=== PATIENT | female | born 1965 | race Caucasian/White ===

== ENCOUNTER → 2017-11-22 | Outpatient (CLI) | payer BC ==
--- NOTE | 2017-11-23 10:29 | MM ---
Reason for exam: screening (asymptomatic). Last mammogram was performed 1 year and 2 months ago. History: Patient is postmenopausal and has history of other cancer at age 46. Took hormonal contraceptives for 20 years. MG 3D Screening Mammo W/Cad Bilateral CC and MLO view(s) were taken. Prior study comparison: September 08, 2016, bilateral MG screening mammo w CAD. July 23, 2015, bilateral MG screening mammo w CAD. May 27, 2014, bilateral MG screening mammo w CAD. The breast tissue is heterogeneously dense. This may lower the sensitivity of mammography. Finding: There is a new architectural distortion in the central position of the left breast, CC slice (39/61) not as well seen on MLO view. ASSESSMENT: Incomplete: need additional imaging evaluation, BI-RAD 0 RECOMMENDATION: Special view mammogram of the left breast. If lesion persists on supplemental views, image directed ultrasound is recommended. [facility] will attempt to contact patient to return for supplemental views and ultrasound if indicated.
== END ==
LOC: RADMAMWWP 07:42
PROVIDERS: ATTEND Obstetrics & Gynecology
DX: Z12.31 Encounter for screening mammogram for malignant neoplasm of breast (principal); R92.8 Other abnormal and inconclusive findings on diagnostic imaging of breast
CPT/HCPCS: 77063; 77067

== ENCOUNTER → 2017-11-29 | Outpatient (CLI) | payer BC ==
--- NOTE | 2017-11-30 07:06 | MM ---
Reason for exam: additional evaluation requested from abnormal screening. Last mammogram was performed less than 1 month ago. History: Patient is postmenopausal and has history of other cancer at age 46. Took hormonal contraceptives for 20 years. Physical Findings: Nurse did not find any significant physical abnormalities on exam. MG 3D Work Up W/Cad LT Spot compression CC and spot compression MLO view(s) were taken of the left breast. Prior study comparison: November 22, 2017, bilateral MG 3d screening mammo w/cad. September 08, 2016, bilateral MG screening mammo w CAD. The breast tissue is heterogeneously dense. This may lower the sensitivity of mammography. There is no discrete abnormality including area of concern. These results were verbally communicated with the patient and result sheet given to the patient on 11/29/17. ASSESSMENT: Benign, BI-RAD 2 RECOMMENDATION: Return to routine screening mammogram schedule for both breasts.
== END ==
LOC: RADMAMWWP 14:54
PROVIDERS: ATTEND Obstetrics & Gynecology
DX: R92.8 Other abnormal and inconclusive findings on diagnostic imaging of breast (principal)
CPT/HCPCS: 77065; G0279

== ENCOUNTER 2018-03-24 11:22 | Day surgery (SDC) | payer BC ==
[2018-03-22 09:20] VITALS: BMI 36.0
[~2018-03-24 11:22] MED LIST: LACTATED RINGERS 1,000 ML IV SCH; LIDOCAINE 1% 20 ML VIAL (10MG/ML) FOR IV START INTRADERMA PRN
[2018-03-24 11:44] VITALS: RESP 16; TEMP 98.2
[2018-03-24] MEDS ORDERED: PROPOFOL 10 MG/ML 20 ML VIAL IV ONE (13:02)
[2018-03-24] MEDS ORDERED: GLYCOPYRROLATE 0.2 MG/ML 2 ML VIAL ONE (13:02)
[2018-03-24] MEDS ORDERED: LIDOCAINE 1% INJ 10MG/ML (20 ML MDV) ONE (13:02)
--- NOTE | 2018-03-24 13:08 | P.GSHP ---
History of Present Illness H&P Date: 03/24/18 Chief Complaint: GERD, screening colonoscopy This a 52-year-old female who presents today for EGD and screening colonoscopy. He has had issues with GERD. Past Medical History Past Medical History: Cancer, GERD/Reflux, Hearing Disorder / Deafness, Hyperlipidemia, Thyroid Disorder Additional Past Medical History / Comment(s): SKIN CANCER-BASAL CELL. BILAT HEARING AIDS History of Any Multi-Drug Resistant Organisms: None Reported Past Surgical History: Bladder Surgery, Cholecystectomy, Orthopedic Surgery Additional Past Surgical History / Comment(s): EXCISION -LESION FROM FACE, , RT KNEE,ANKLE,FOOT SX, IRRITATING METAL REMOVED-RIGHT KNEE, BILAT SHOULDER SX, BLADDER SLING, Past Anesthesia/Blood Transfusion Reactions: No Reported Reaction Smoking Status: Never smoker - Past Family History Mother Family Medical History: Cancer Medications and Allergies Home Medications Medication Instructions Recorded Confirmed Type Citalopram Hydrobromide [CeleXA] 20 mg PO DAILY 02/13/15 03/22/18 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 Thyroid 60 Mg 60 mg PO BID 03/22/18 History Progesterone, Micronized 100 mg PO HS 03/22/18 03/22/18 History [Progesterone] Simvastatin [Zocor] 20 mg PO HS 03/22/18 03/22/18 History Allergies Allergy/AdvReac Type Severity Reaction Status Date / Time No Known Allergies Allergy Verified 03/24/18 11:36 Surgical - Exam Vital Signs Temp Pulse Resp BP Pulse Ox 98.2 F 82 16 118/76 95 03/24/18 11:43 03/24/18 11:43 03/24/18 11:43 03/24/18 11:43 03/24/18 11:43 - General well developed, no distress - Eyes PERRL - ENT normal pinna - Neck no masses - Respiratory normal expansion - Cardiovascular Rhythm: regular - Abdomen Abdomen: soft, non tender Assessment and Plan Assessment: GERD we'll perform EGD. We'll also perform screening colonoscopy.
--- NOTE | 2018-03-24 13:25 | P.OP ---
Date of Procedure: 03/24/18 Preoperative Diagnosis: GERD Screening colonoscopy Postoperative Diagnosis: Antral gastritis No evidence of hiatal hernia Minimal esophagitis Normal colon Procedure(s) Performed: EGD Colonoscopy Anesthesia: MAC Surgeon: Derik Leblanc Pathology: other (Antrum, esophagus) Condition: stable Disposition: PACU Description of Procedure: Patient was placed on the endoscopy table in the lateral position. She received IV sedation. The gastroscope placed oropharynx and passed in the esophagus into the stomach. Scope was then placed through the pylorus. The first and second portion of duodenum appeared normal. Scope was then brought back the antrum and this was mildly inflamed. A biopsies performed. Scope was unretroflexed and remainder stomach appeared normal. There is no significant hiatal hernia. The GE junction was at 40 cm. The distal esophagus appeared minimally inflamed a biopsies performed. The proximal esophagus appeared normal. Scope was withdrawn for patient. Next, Digital rectal examination was performed which revealed no abnormalities.. Flexible colonoscope was then placed in the patient's anus and passed throughout the entire colon. The ileocecal valve was visualized. The cecum, ascending, transverse, descending and sigmoid colon were normal. The rectum was normal as well. There were no masses, polyps or diverticula noted in the entire colon.
[2018-03-24 13:48] VITALS: BP 131/77; PULSE 81
== END 2018-03-24 14:09 | disposition home or self-care (01) ==
LOC: ORWHC2ENDO 11:22
PROVIDERS: ATTEND Surgery
DX: Z12.11 Encounter for screening for malignant neoplasm of colon (principal); K29.50 Unspecified chronic gastritis without bleeding; K21.0 Gastro-esophageal reflux disease with esophagitis; E78.5 Hyperlipidemia, unspecified; E07.9 Disorder of thyroid, unspecified; H91.90 Unspecified hearing loss, unspecified ear; Z85.828 Personal history of other malignant neoplasm of skin; Z79.890 Hormone replacement therapy; Z79.899 Other long term (current) drug therapy
CPT/HCPCS: 88305; 43239; J2001; J2704; G0121

== ENCOUNTER → 2018-07-31 | Outpatient (CLI) | payer BC | END | disposition home or self-care (01) | LOC: LABPAT 13:56 | PROVIDERS: ATTEND Surgery | DX: Z53.9 Procedure and treatment not carried out, unspecified reason (principal) ==

== ENCOUNTER 2018-08-03 09:06 | Inpatient (IN) | payer BC ==
[2018-07-31 13:11] VITALS: BMI 36.0
[~2018-08-03 09:06] MED LIST changes: +DEXAMETHASONE SOD PHOSPHATE 10 MG/ML 1 ML VIAL IV ONE; +HEPARIN SODIUM,PORCINE 5,000 UNIT/ML 1 ML VIAL SQ ONE; -LACTATED RINGERS 1,000 ML IV SCH; +MIDAZOLAM 2 MG/2 ML VIAL IV PRN; +ONDANSETRON 4 MG/2 ML VIAL IVP ONE; +ceFAZolin IN SWFI 2 GM/20 ML SYRINGE IVP ONE; +fentaNYL (PF) 50 MCG/ML 2 ML AMP IV PRN
[2018-08-03] MEDS: LACTATED RINGERS 1,000 ML IV SCH (09:38)
--- NOTE | 2018-08-03 10:05 | P.GSHP ---
History of Present Illness H&P Date: 08/03/18 Chief Complaint: GERD This is a 52-year-old female referred from Dr. Ibarra.The patient has had long- standing problems with reflux esophagitis. The patient underwent recent EGD is found have evidence of esophagitis. Patient has been well informed on the procedure of laparoscopic Emerald fundoplication. The patient is aware the risk of the conversion to the open procedure, risk of injury to the stomach, liver and spleen. The patient is also a risk of recurrent GERD and dysphagia symptoms. The patient understands there is a postoperative diet of full liquids for 2 weeks after surgery. Past Medical History Past Medical History: Cancer, GERD/Reflux, Hearing Disorder / Deafness, Hyperlipidemia, Pneumonia, Skin Disorder, Thyroid Disorder Additional Past Medical History / Comment(s): SKIN CANCER-BASAL CELL; EZCEMA. LMP 01/2017, ON HORMONE PELLET THERAPY. BILAT HEARING AIDS History of Any Multi-Drug Resistant Organisms: None Reported Past Surgical History: Bladder Surgery, Cholecystectomy, Orthopedic Surgery Additional Past Surgical History / Comment(s): EXCISION -LESION FROM FACE, ORIF RT KNEE PATELLA, ORIF ANKLE, HEEL FOOT SX. IRRITATING METAL REMOVED-RIGHT KNEE, BILAT SHOULDER SX, BLADDER SLING. 03/24/18 COLONOSCOPY, EGD. 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 Thyroid 60 Mg 60 mg PO BID 03/22/18 07/31/18 History Progesterone, Micronized 200 mg PO HS 03/22/18 07/31/18 History [Progesterone] Simvastatin [Zocor] 40 mg PO HS 03/22/18 07/31/18 History Cholecalciferol [Vitamin D3] 2,000 unit PO DAILY 07/31/18 07/31/18 History Multivitamins, Thera [Multivitamin 1 tab PO DAILY 07/31/18 07/31/18 History (formulary)] Omeprazole Magnesium [PriLOSEC OTC] 20 mg PO DAILY PRN 07/31/18 07/31/18 History Allergies Allergy/AdvReac Type Severity Reaction Status Date / Time No Known Allergies Allergy Verified 08/03/18 09:22 Surgical - Exam Vital Signs Temp Pulse Resp BP Pulse Ox 98.3 F 74 16 123/78 95 08/03/18 09:23 08/03/18 09:23 08/03/18 09:23 08/03/18 09:23 08/03/18 09:23 - General well developed, no distress - Eyes PERRL - ENT normal pinna - Neck no masses - Respiratory normal expansion - Cardiovascular Rhythm: regular - Abdomen Abdomen: soft, non tender Assessment and Plan Assessment: GERD. We'll perform laparoscopic Emerald fundoplication.
[2018-08-03] MEDS ORDERED: ROCURONIUM BROMIDE 10 MG/ML 10 ML VIAL IV ONE (10:29)
[2018-08-03] MEDS ORDERED: GLYCOPYRROLATE 0.2 MG/ML 2 ML VIAL ONE (10:29)
[2018-08-03] MEDS ORDERED: fentaNYL (PF) 50 MCG/ML 2 ML AMP ONE (10:29)
[2018-08-03] MEDS ORDERED: ePHEDrine SULFATE/0.9% NACL/PF 50 MG/5 ML SYRINGE IV ONE (10:29)
[2018-08-03] MEDS ORDERED: NEOSTIGMINE 1 MG/ML 10 ML VIAL ONE (10:29)
[2018-08-03] MEDS ORDERED: LIDOCAINE 1% INJ 10MG/ML (20 ML MDV) ONE (10:29)
[2018-08-03] MEDS ORDERED: HYDROmorphone (PF) 1 MG/ML ONE (10:29)
[2018-08-03] MEDS ORDERED: PROPOFOL 10 MG/ML 20 ML VIAL IV ONE (10:29)
[2018-08-03] MEDS ORDERED: KETOROLAC 30 MG/ML 1 ML VIAL ONE (10:29)
[2018-08-03] MEDS ORDERED: MIDAZOLAM 2 MG/2 ML VIAL ONE (10:29)
[2018-08-03] MEDS ORDERED: BUPIVACAIN-EPI 0.5%-1:200,000 30 ML VIAL SQ ONE (10:56)
[2018-08-03] MEDS ORDERED: ONDANSETRON 4 MG/2 ML VIAL IVP PRN (11:22)
[2018-08-03] MEDS ORDERED: HYDROmorphone 1 MG/ML 1 ML SYRINGE IVP PRN (11:22)
--- NOTE | 2018-08-03 11:22 | P.OP ---
Date of Procedure: 08/03/18 Preoperative Diagnosis: GERD Postoperative Diagnosis: GERD Procedure(s) Performed: Laparoscopic Emerald fundal plication Anesthesia: CATHRYN Surgeon: Derik Leblanc Estimated Blood Loss (ml): 5 Pathology: none sent Condition: stable Disposition: PACU Description of Procedure: The patient was placed on the operating table in the supine position. The patient received general anesthesia. And was placed in dorsal lithotomy position. The patient was prepped and draped in the usual sterile fashion. The skin incision sites were anesthetized with 1% local Xylocaine. The skin was incised in the left periumbilical area and then using a blade less 5 mm trocar under direct visualization panel cavity was entered. After adequate insufflation the laparoscope was then placed into the peritoneal cavity. Next a 5 mm trochars placed in the right epigastric position. Another 5 millimeter trocar the right lateral position. Another 5 millimeter trocar in the left lateral position a 5 mm trocar is placed in the left epigastric position. And then the initial 5 mm trocar was exchanged for a 10 mm trocar. The left lateral lobe liver was retracted. The hernia was seen. The crural defect was then dissected using the Harmonic scissors device. A 360 crural dissection was performed the esophagus stomach was reduced back into the peritoneal Cavity. The crural defect was then closed using 2-0 Ethibond suture. Next the fundus of the stomach was mobilized using the [place] scissors device. and then a 58-Pashto bougie dilator was placed oropharynx passed into the esophagus and stomach the fundal plication wrap was then performed by grasping the fundus posteriorly and bringing it around the esophagus and stomach fundoplication was then performed using 2-0 Ethibond suture. Care was taken that the fundal location rested over top of the intra-abdominal esophagus. There was no injury seen to the stomach or esophagus. The dilator was then withdrawn. The abdomen was irrigated there is no bleeding seen. The trochars were then withdrawn and then skin incision sites were closed using 3-0 Monocryl suture Steri-Strips are applied. Patient thought procedure well and sent to recovery room in stable condition.
[2018-08-03] MEDS ORDERED: HYDROmorphone 1 MG/ML 1 ML SYRINGE IVP ONE ×2 (11:30→11:35)
[2018-08-03 12:12] VITALS: RESP 16
[2018-08-03] MEDS ORDERED: LACTATED RINGERS 1,000 ML IV ONE (12:20)
[2018-08-03] MEDS ORDERED: ONDANSETRON 4 MG/2 ML VIAL IVP ONE (12:22)
[2018-08-03] MEDS: METOCLOPRAMIDE 5 MG/ML 2 ML VIAL IVP SCH ×3 (13:25→23:51)
[2018-08-03] MEDS ORDERED: PANTOPRAZOLE 40 MG TABLET PO PRN (14:05)
--- NOTE | 2018-08-03 15:46 | FL ---
Single contrast esophagram EXAMINATION TYPE: FL esophagus cervic/pharynx DATE OF EXAM: 08/03/2018 3:33 PM COMPARISON: NONE CLINICAL HISTORY: Status post Jean Claude fundoplication The patient ingested contrast without difficulty or delay. Noted are changes of Jean Claude fundoplicatio n. There is no evidence for leak or obstruction. Small amount of residual contrast within the distal esophagus. IMPRESSION: Post-surgical change of Jean Claude fundoplication without evidence for leak or obstruction.
--- NOTE | 2018-08-03 16:21 | P.CONS ---
History of Present Illness - Reason for Consult Preoperative consultation management - History of Present Illness 52-year-old pleasant female with history of 4 gastroesophageal reflux disease underwent Emerald fundoplication procedure post surgery patient denied nausea denied any abdominal pain denied any fever chills patient does not have any 40 catheter at this time. Patient did not pass gas yet did not move her bowel yet. Patient is postoperative day 0. Review of Systems REVIEW OF SYSTEMS: CONSTITUTIONAL: No fever, no malaise, no fatigue. HEENT: No recent visual problems or hearing problems. Denied any sore throat. CARDIOVASCULAR: No chest pain, orthopnea, PND, no palpitations, no syncope. PULMONARY: No shortness of breath, no cough, no hemoptysis. GASTROINTESTINAL: No diarrhea, no nausea, no vomiting, no abdominal pain. Normoactive bowel sounds. NEUROLOGICAL: No headaches, no weakness, no numbness. HEMATOLOGICAL: Denies any bleeding or petechiae. GENITOURINARY: Denies any burning micturition, frequency, or urgency. MUSCULOSKELETAL/RHEUMATOLOGICAL: Denies any joint pain, swelling, or any muscle pain. ENDOCRINE: Denies any polyuria or polydipsia. The rest of the 14-point review of systems is negative. Past Medical History Past Medical History: Cancer, GERD/Reflux, Hearing Disorder / Deafness, Hyperlipidemia, Pneumonia, Skin Disorder, Thyroid Disorder Additional Past Medical History / Comment(s): SKIN CANCER-BASAL CELL; EZCEMA. LMP 01/2017, ON HORMONE PELLET THERAPY. BILAT HEARING AIDS History of Any Multi-Drug Resistant Organisms: None Reported Past Surgical History: Bladder Surgery, Cholecystectomy, Orthopedic Surgery Additional Past Surgical History / Comment(s): EXCISION -LESION FROM FACE, ORIF RT KNEE PATELLA, ORIF ANKLE, HEEL FOOT SX. IRRITATING METAL REMOVED-RIGHT KNEE, BILAT SHOULDER SX, BLADDER SLING. 03/24/18 COLONOSCOPY, EGD. 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 Thyroid 60 Mg 60 mg PO BID 03/22/18 08/03/18 History Cholecalciferol [Vitamin D3] 2,000 unit PO DAILY 07/31/18 08/03/18 History Multivitamins, Thera [Multivitamin 1 tab PO DAILY 07/31/18 08/03/18 History (formulary)] Omeprazole Magnesium [PriLOSEC OTC] 20 mg PO DAILY PRN 07/31/18 08/03/18 History Progesterone, Micronized 200 mg PO HS 08/03/18 08/03/18 History [Progesterone] Simvastatin [Zocor] 40 mg PO HS 08/03/18 08/03/18 History Allergies Allergy/AdvReac Type Severity Reaction Status Date / Time No Known Allergies Allergy Verified 08/03/18 09:22 Physical Exam Vitals: Vital Signs Temp Pulse Resp BP Pulse Ox 08/03/18 14:45 74 103/67 08/03/18 14:30 71 107/68 08/03/18 14:15 62 108/64 08/03/18 14:00 69 114/77 08/03/18 13:45 58 L 124/80 08/03/18 13:30 65 115/71 08/03/18 13:15 73 113/77 08/03/18 13:00 68 122/78 08/03/18 12:45 98.2 F 72 16 120/89 99 08/03/18 12:39 98.2 F 80 16 128/89 98 08/03/18 12:15 78 16 126/70 96 08/03/18 11:30 80 16 126/68 95 08/03/18 11:27 97.1 F L 87 14 145/76 97 08/03/18 09:23 98.3 F 74 16 123/78 95 Intake and Output 08/03/18 08/03/18 08/03/18 06:59 14:59 22:59 Intake Total 1000 Output Total 5 Balance 995 Intake: IV 1000 Output: Estimated Blood Loss 5 Other: Weight 95.254 kg PHYSICAL EXAMINATION: GENERAL: The patient is alert and oriented x3, not in any acute distress. Well developed, well nourished. HEENT: Pupils are round and equally reacting to light. EOMI. No scleral icterus. No conjunctival pallor. Normocephalic, atraumatic. No pharyngeal erythema. No thyromegaly. CARDIOVASCULAR: S1 and S2 present. No murmurs, rubs, or gallops. PULMONARY: Chest is clear to auscultation, no wheezing or crackles. ABDOMEN: Soft, nontender, nondistended, normoactive bowel sounds. No palpable organomegaly. Surgical site areas appear to be clean MUSCULOSKELETAL: No joint swelling or deformity. EXTREMITIES: No cyanosis, clubbing, or pedal edema. NEUROLOGICAL: Gross neurological examination did not reveal any focal deficits. SKIN: No rashes. Assessment and Plan Plan: -gastroesophageal reflux disease: Patient underwent Emerald fundoplication clinically doing well. Pain management due to prophylaxis as per primary service -Hypothyroidism continue with the her thyroid supplementation -Depression -Hyperlipidemia continue with Zocor.
[2018-08-03] MEDS: D5-0.45% NACL WITH KCL 20MEQ/L 1,000 ML IV SCH ×2 (19:32→20:04)
[2018-08-03] MEDS: THYROID, PORK 30 MG TAB PO SCH (20:44)
[2018-08-03] MEDS ORDERED: ATORVASTATIN 20 MG TAB PO SCH (21:00)
[2018-08-04] MEDS: METOCLOPRAMIDE 5 MG/ML 2 ML VIAL IVP SCH ×2 (05:41→13:10)
[2018-08-04] MEDS: D5-0.45% NACL WITH KCL 20MEQ/L 1,000 ML IV SCH ×2 (05:41→13:10)
[2018-08-04 07:08] VITALS: BP 115/75; PULSE 74; TEMP 98.9
[2018-08-04] MEDS ORDERED: ENOXAPARIN 40 MG/0.4 ML SYRINGE SQ SCH (09:00)
[2018-08-04] MEDS ORDERED: CITALOPRAM HYDROBROMIDE 20 MG TAB PO SCH (09:00)
--- NOTE | 2018-08-04 09:38 | P.DS ---
Providers Date of admission: 08/03/18 09:06 Expected date of discharge: 08/04/18 Attending physician: Derik Leblanc Consults: 08/03/18 11:22 Consult Physician Routine Consulting Provider: Frederick Ingram Consult Reason/Comments: Medical management Do you want consulting provider notified?: Yes Primary care physician: Adrien [facility] Course: 52-year-old female presented to undergo an elective laparoscopic Emerald fundoplication for symptomatic reflux esophagitis. Patient underwent a recent EGD which showed evidence of esophagitis .Laparoscopic Emerald fundoplication was done on August 03 for symptomatic esophageal reflux Postop no events tolerating emerald clear liquid diet. Plain Tylenol is effective for pain control. Surgical dressing sites dry. Abdomen nondistended surgical tenderness appropriate urinating no difficulty passing gas. Patient was anxious for discharge. Impression discharge diagnosis Status post August 03 laparoscopic Emerald fundoplication for symptomatic esophageal reflux symptoms Recent EGD showed evidence of esophagitis GERD esophageal reflux disease Hypothyroid on supplements Depression Hyperlipidemia The above impression and plan of care have been discussed and directed by signing physician. Anne-Marie Loya nurse practitioner acting as scribe for signing physician. 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 Thyroid 60 Mg 60 mg PO BID Multivitamins, Thera [Multivitamin (formulary)] 1 tab PO DAILY Cholecalciferol [Vitamin D3] 2,000 unit PO DAILY Omeprazole Magnesium [PriLOSEC OTC] 20 mg PO DAILY PRN PRN Reason: GERD Simvastatin [Zocor] 40 mg PO HS Progesterone, Micronized [Progesterone] 200 mg PO HS Discharge Medication List Citalopram Hydrobromide [CeleXA] 20 mg PO DAILY 02/13/15 [History] 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 Thyroid 60 Mg 60 mg PO BID 03/22/18 [History] Cholecalciferol [Vitamin D3] 2,000 unit PO DAILY 07/31/18 [History] Multivitamins, Thera [Multivitamin (formulary)] 1 tab PO DAILY 07/31/18 [History ] Omeprazole Magnesium [PriLOSEC OTC] 20 mg PO DAILY PRN 07/31/18 [History] Progesterone, Micronized [Progesterone] 200 mg PO HS 08/03/18 [History] Simvastatin [Zocor] 40 mg PO HS 08/03/18 [History] Acetaminophen Tab [Tylenol Tab] 650 mg PO Q4H #30 tablet 08/04/18 [Rx] Follow up Appointment(s)/Referral(s): Derik Leblanc MD [STAFF PHYSICIAN] - 1 Week Activity/Diet/Wound Care/Special Instructions: No tub bath for six weeks. Shower daily. No lifting over 10 pounds for the next 4 weeks. Continue on emerald clear liquid diet until seen in the office follow-up visit May use ice packs to surgical site. May return to work on Tuesday with no lifting over 10 pounds . Discharge Disposition: HOME SELF-CARE
[2018-08-04] MEDS: LACTATED RINGERS 1,000 ML IV SCH (10:01)
[2018-08-04] MEDS: THYROID, PORK 30 MG TAB PO SCH (10:03)
--- NOTE | 2018-08-04 13:56 | P.PN ---
Subjective No overnight events patient is clinically doing well is being discharged okay to be discharged from medical perspective. Objective - Vital Signs Vital signs: Vital Signs Temp 98.9 F 08/04/18 07:07 Pulse 74 08/04/18 07:07 Resp 16 08/04/18 07:07 BP 115/75 08/04/18 07:07 Pulse Ox 94 L 08/04/18 07:07 Intake & Output 08/03/18 08/04/18 08/04/18 18:59 06:59 18:59 Intake Total 1000 1250 Output Total 5 Balance 995 1250 Weight 95.254 kg Intake: IV 1000 Intake, IV Titration 1250 Amount D5-0.45% NaCl with KCl 1250 20Meq/l 1,000 ml @ 125 mls/hr IV .Q8H ROSA Rx#: [id number] Output: Estimated Blood Loss 5 Other: Voiding Method Toilet Toilet Toilet # Voids 1 - Exam PHYSICAL EXAMINATION: GENERAL: The patient is alert and oriented x3, not in any acute distress. Well developed, well nourished. HEENT: Pupils are round and equally reacting to light. EOMI. No scleral icterus. No conjunctival pallor. Normocephalic, atraumatic. No pharyngeal erythema. No thyromegaly. CARDIOVASCULAR: S1 and S2 present. No murmurs, rubs, or gallops. PULMONARY: Chest is clear to auscultation, no wheezing or crackles. ABDOMEN: Soft, nontender, nondistended, normoactive bowel sounds. No palpable organomegaly. MUSCULOSKELETAL: No joint swelling or deformity. EXTREMITIES: No cyanosis, clubbing, or pedal edema. NEUROLOGICAL: Gross neurological examination did not reveal any focal deficits. SKIN: No rashes. Assessment and Plan Plan: -gastroesophageal reflux disease: Patient underwent Emerald fundoplication clinically doing well. Pain management due to prophylaxis as per primary service -Hypothyroidism continue with the her thyroid supplementation -Depression -Hyperlipidemia continue with Zocor.
== END 2018-08-04 13:42 | disposition home or self-care (01) | DRG 328 ==
LOC: 2ORMAIN 09:06 → 3SUR 11:24
PROVIDERS: ADMIT Surgery; ATTEND Surgery
PROC: 0DV44ZZ Restriction of Esophagogastric Junction, Percutaneous Endoscopic Approach (ICD-10-PCS; principal; 2018-08-03 10:50)
DX: K21.0 Gastro-esophageal reflux disease with esophagitis (principal); E78.5 Hyperlipidemia, unspecified; H91.93 Unspecified hearing loss, bilateral; E03.9 Hypothyroidism, unspecified; F32.9 Major depressive disorder, single episode, unspecified; Z97.4 Presence of external hearing-aid; Z79.899 Other long term (current) drug therapy; Z85.828 Personal history of other malignant neoplasm of skin; Z90.49 Acquired absence of other specified parts of digestive tract; Z79.890 Hormone replacement therapy
CPT/HCPCS: 74210; 81025

== ENCOUNTER → 2019-02-02 | Outpatient (CLI) | payer BC ==
--- NOTE | 2019-02-06 08:26 | MM ---
Reason for exam: screening (asymptomatic). Last mammogram was performed 1 year and 2 months ago. History: Patient is postmenopausal and has history of other cancer at age 46. Took hormonal contraceptives for 20 years. Took progesterone for 2 years beginning at age 51. Physical Findings: A clinical breast exam by your physician is recommended on an annual basis and results should be correlated with mammographic findings. MG Screening Mammo w CAD Bilateral CC and MLO view(s) were taken. Prior study comparison: November 29, 2017, left breast MG 3d work up w/cad LT. November 22, 2017, bilateral MG 3d screening mammo w/cad. The breast tissue is heterogeneously dense. This may lower the sensitivity of mammography. Finding: There are typically benign fine, diffuse/scattered calcifications in both breasts. No significant changes in finding since November 29, 2017 and November 22, 2017. ASSESSMENT: Benign, BI-RAD 2 RECOMMENDATION: Routine screening mammogram of both breasts in 1 year.
== END | disposition home or self-care (01) ==
LOC: RADMAMWWP 09:17
PROVIDERS: ATTEND Obstetrics & Gynecology
DX: Z12.31 Encounter for screening mammogram for malignant neoplasm of breast (principal)
CPT/HCPCS: 77067

== ENCOUNTER → 2020-12-16 | Outpatient (CLI) | payer MEDICAID ==
--- NOTE | 2020-12-17 11:51 | MM ---
Reason for exam: screening (asymptomatic). Last mammogram was performed 1 year and 10 months ago. History: Patient is postmenopausal and has history of other cancer at age 46. Took hormonal contraceptives for 20 years. Took progesterone for 2 years beginning at age 51. Physical Findings: A clinical breast exam by your physician is recommended on an annual basis and results should be correlated with mammographic findings. MG 3D Screening Mammo W/Cad Bilateral CC and MLO view(s) were taken. Prior study comparison: February 02, 2019, bilateral MG screening mammo w CAD. November 29, 2017, left breast MG 3d work up w/cad LT. The breast tissue is heterogeneously dense. This may lower the sensitivity of mammography. There is chronic nodularity in the right breast. No significant changes when compared with prior studies. ASSESSMENT: Benign, BI-RAD 2 RECOMMENDATION: Routine screening mammogram of both breasts in 1 year.
== END | disposition home or self-care (01) ==
LOC: RADMAMWWP 08:16
PROVIDERS: ATTEND Obstetrics & Gynecology
DX: Z12.31 Encounter for screening mammogram for malignant neoplasm of breast (principal)
CPT/HCPCS: 77063; 77067

== ENCOUNTER → 2022-01-21 | Outpatient (CLI) | payer BC ==
--- NOTE | 2022-01-25 10:51 | MM ---
Reason for exam: screening (asymptomatic). Last mammogram was performed 1 year and 1 month ago. History: Patient is postmenopausal and has history of other cancer at age 46. Took hormonal contraceptives for 20 years. Took progesterone for 2 years beginning at age 51. Physical Findings: A clinical breast exam by your physician is recommended on an annual basis and results should be correlated with mammographic findings. MG 3D Screening Mammo W/Cad Bilateral CC and MLO view(s) were taken. Prior study comparison: December 16, 2020, bilateral MG 3d screening mammo w/cad. February 02, 2019, bilateral MG screening mammo w CAD. The breast tissue is heterogeneously dense. This may lower the sensitivity of mammography. There is chronic nodularity in the right breast. No significant changes when compared with prior studies. ASSESSMENT: Benign, BI-RAD 2 RECOMMENDATION: Routine screening mammogram of both breasts in 1 year. Patient should continue monthly self breast exams. A negative report should not preclude additional follow up of suspicious palpable abnormalities.
== END | disposition home or self-care (01) ==
LOC: RADMAMWWP 07:13
PROVIDERS: ATTEND Obstetrics & Gynecology
DX: Z12.31 Encounter for screening mammogram for malignant neoplasm of breast (principal); Z78.0 Asymptomatic menopausal state
CPT/HCPCS: 77063; 77067

== ENCOUNTER → 2023-06-16 | Outpatient (CLI) | payer BC ==
--- NOTE | 2023-06-17 08:33 | MM ---
Reason for Exam: Screening (asymptomatic). Last mammogram was performed 1 year(s) and 5 month(s) ago. Patient History: Menarche at age 9. First Full-Term at age 23. Postmenopausal. Other cancer, age 46. Progesterone, starting at age 51 for 2 years. Patient used Hormonal Contraceptives for 20 years. Risk Values: Ana María 5 year model risk: 1.7%. NCI Lifetime model risk: 9.1%. Prior Study Comparison: 02/02/2019 Bilateral Screening Mammogram, [facility]. 12/16/2020 Bilateral Screening Mammogram, [facility]. 01/21/2022 Bilateral Screening Mammogram, [facility]. Tissue Density: The breast tissue is heterogeneously dense. This may lower the sensitivity of mammography. Findings: Analyzed By CAD. There is no suspicious group of microcalcifications or new suspicious mass in either breast. Benign-appearing calcifications within both breasts. Stable chronic nodularity within the right breast. Overall Assessment: Benign, BI-RAD 2 Management: Screening Mammogram of both breasts in 1 year. A clinical breast exam by your physician is recommended on an annual basis and results should be correlated with mammographic findings. Note on Ana María scores and lifetime risk: 1. A Ana María score greater than 3% is considered moderate risk. If this is the case, consider specialist referral to assess eligibility for a risk reducing agent. If overall lifetime risk for the development of breast cancer is 20% or higher, the patient may qualify for future screening with alternating mammogram and breast MRI. Electronically signed and approved by: Asad Bach D.O.
== END | disposition home or self-care (01) ==
LOC: RADMAMWWP 06:54
PROVIDERS: ATTEND Family Medicine
DX: Z12.31 Encounter for screening mammogram for malignant neoplasm of breast (principal); Z78.0 Asymptomatic menopausal state
CPT/HCPCS: 77063; 77067

== ENCOUNTER → 2024-08-13 | Outpatient (CLI) | payer BC ==
[2024-08-13 13:15] LABS: Basophils # (A) 0.04 X 10*3/uL (0.00-0.10); Basophils % (A) 0.7 %; Eosinophils # (A) 0.31 X 10*3/uL (0.04-0.35); Eosinophils % (A) 5.1 %; HCT 37.3 % (37.2-46.3); HGB 11.7 g/dL (12.0-15.0); Lymphocytes # (A) 1.75 X 10*3/uL (0.90-5.00); Lymphocytes % (A) 28.9 %; MCH 27.1 pg (27.0-32.0); MCHC 31.4 g/dL (32.0-37.0); MCV 86.3 FL (80.0-97.0); Mean Platelet Volume 10.2 FL (9.5-12.2); Monocytes % (A) 6.6 %; NRBC Per 100 WBC 0 X 10*3/uL (0.00-0.01); Neutrophils # (A) 3.55 X 10*3/uL (1.80-7.70); Neutrophils % (A) 58.5 %; Platelet Count 296 X 10*3/uL (140-440); RBC 4.32 X 10*6/uL (4.10-5.20); RDW 14.2 % (11.5-14.5); WBC 6.06 X 10*3/uL (4.50-10.00)
[2024-08-13 13:51] LABS: Chol/HDL Ratio 3.17 Ratio; LDL Cholesterol,Calculated 94.1 mg/dL (0.0-131.0)
--- NOTE | 2024-08-14 13:48 | MM ---
Reason for Exam: Screening (asymptomatic). Last mammogram was performed 1 year(s) and 1 month(s) ago. Patient History: Menarche at age 9. First Full-Term at age 23. Postmenopausal. Other cancer, age 46. Progesterone, starting at age 51 for 2 years. Patient used Hormonal Contraceptives for 20 years. Risk Values: Ana María 5 year model risk: 1.8%. NCI Lifetime model risk: 8.9%. Prior Study Comparison: 12/16/2020 Bilateral Screening Mammogram, [facility]. 01/21/2022 Bilateral Screening Mammogram, [facility]. 06/16/2023 Bilateral MG 3D screening mammo w/cad, [facility]. Tissue Density: The breasts are heterogeneously dense, which may obscure small masses. Findings: Analyzed By CAD. Right breast: There is no suspicious group of microcalcifications or new suspicious mass. Left breast: There is no suspicious group of microcalcifications or new suspicious mass. Overall Assessment: Negative, BI-RAD 1 Management: Screening Mammogram of both breasts in [address] [facility] will attempt to contact patient to return for supplemental views and ultrasound if indicated. Patient should continue monthly self-breast exams. A clinical breast exam by your physician is recommended on an annual basis. This exam should not preclude additional follow-up of suspicious palpable abnormalities. Note on Ana María scores and lifetime risk: 1. A Ana María score greater than 3% is considered moderate risk. If this is the case, consider specialist referral to assess eligibility for a risk reducing agent. 2. If overall lifetime risk for the development of breast cancer is 20% or higher, the patient may qualify for future screening with alternating mammogram and breast MRI. [facility], , 08/14/2024 1:44 PM. Electronically signed and approved by: Juma Sawyer DO
== END | disposition home or self-care (01) ==
LOC: RADMAMWWP 07:00
PROVIDERS: ATTEND Obstetrics & Gynecology
DX: Z12.31 Encounter for screening mammogram for malignant neoplasm of breast (principal); R92.333 Mammographic heterogeneous density, bilateral breasts; E66.09 Other obesity due to excess calories; E78.2 Mixed hyperlipidemia; Z78.0 Asymptomatic menopausal state; Z80.3 Family history of malignant neoplasm of breast
CPT/HCPCS: 36415; 77063; 77067; 80061; 83036; 84439; 84443; 85025